=== PATIENT | male | born 1965 ===

== ENCOUNTER 2017-08-25 09:11 | Emergency (ER) | payer OTHER ==
[~2017-08-25] VITALS: Ht 175.3 cm; Wt 77.1 kg
== END 2017-08-25 15:30 | disposition home or self-care (01) ==
LOC: ER 09:11
DX: S96.812A Strain of other specified muscles and tendons at ankle and foot level, left foot, initial encounter (principal); X50.3XXA Overexertion from repetitive movements, initial encounter; Y93.89 Activity, other specified; Y92.89 Other specified places as the place of occurrence of the external cause; Y99.8 Other external cause status